=== PATIENT | female | born 1975 | race Caucasian/White ===

== ENCOUNTER 2018-02-20 18:29 | Emergency (ER) | payer BC ==
[~2018-02-20] VITALS: Ht 160 cm; Wt 148.3 kg
[2018-02-20 18:33] VITALS: BP_SYST 153
--- NOTE | 2018-02-20 18:40 | NUR ---
Placed in room 4 . Placed on campus monitor, blood pressure machine and pulse oximeter. To gown for exam. Side rails up.
--- NOTE | 2018-02-20 18:43 | NUR ---
Pt AAOx4 ambulated into ED c/o intermittent SOB x 2 weeks, bloody frothy sputum since yesterday, and chest pain with cough. Pt used inhaler with no relief. Pt skin pink dry and warm, SaO2 94% on RA. No other injuries/complaints per pt/noted. Will continue to monitor.
--- NOTE | 2018-02-20 18:52 | NUR ---
ER Dr. Holden at bedside examining patient.
[2018-02-20] MEDS ORDERED: IPRATROPIUM/ALBUTEROL SULFATE 3 ML AMPUL.NEB INH ONE ×2 (19:15→20:00)
[2018-02-20] MEDS ORDERED: methylPREDNISolone SOD SUCC/PF 62.5 MG/ML VIAL IM ONE (20:00)
[2018-02-20 20:06] LABS: BASOPHILS % (AUTO) 0.8 % (0.0-2.0); EOSINOPHILS # (AUTO) 0.1 K/uL (0.0-0.4); EOSINOPHILS % (AUTO) 1.8 % (0.0-4.0); HEMATOCRIT 34.9 % (36-48); HEMOGLOBIN 11.4 g/dL (12.0-16.0); LYMPHOCYTES # (AUTO) 0.6 K/uL (1.0-5.5); LYMPHOCYTES % (AUTO) 10.8 % (20.5-51.5); MEAN CORPUSCULAR HEMOGLOBIN 27 pg (27-31); MEAN CORPUSCULAR HGB CONC 33 % (32-36); MEAN CORPUSCULAR VOLUME 83 fL (79.0-98.0); MONOCYTES # (AUTO) 0.2 K/uL (0.0-1.0); MONOCYTES % (AUTO) 3.8 % (1.7-9.3); NEUTROPHILS # (AUTO) 4.8 K/uL (1.8-7.7); NEUTROPHILS % (AUTO) 82.8 % (40.0-70.0); PLATELET COUNT (AUTO) 133 K/uL (130-430); RED BLOOD CELL COUNT(AUTO) 4.22 MIL/uL (4.2-6.2); RED CELL DISTRIBUTION WIDTH 16.3 % (9.0-15.0); WHITE BLOOD COUNT (AUTO) 5.7 K/uL (4.8-10.8)
[2018-02-20 20:12] LABS: CALCIUM 8.9 mg/dL (8.4-11.0); CREATININE 0.85 mg/dL (0.55-1.30); POTASSIUM 3.4 mmol/L (3.5-5.1)
--- NOTE | 2018-02-20 20:12 | NUR ---
Medication administered. Pt tolerated well. No adverse reactions noted.
[2018-02-20 20:14] LABS: PROTHROMBIN TIME 10.5 SECS (9.5-12.5)
[2018-02-20 20:16] LABS: ALBUMIN 3.3 g/dL (3.4-4.8); TOTAL BILIRUBIN 0.4 mg/dL (0.0-1.0)
--- NOTE | 2018-02-20 20:25 | NUR ---
Respiratory at bedside
--- NOTE | 2018-02-20 21:53 | NUR ---
Patient given written and verbal discharge instructions and verbalizes understanding. ER MD Motley discussed with patient the results and treatment provided. Patient in stable condition. ID arm band removed. IV catheter removed intact and dressing applied, no active bleeding. Rx of Prednisone; Singulair given. Patient educated on pain management and to follow up with PMD. Pain Scale 0. Opportunity for questions provided and answered. Medication side effect fact sheet provided.
[2018-02-20 21:59] VITALS: BP_SYST 147
== END 2018-02-20 21:53 | disposition home or self-care (01) ==
LOC: SED 18:29
DX: J45.901 Unspecified asthma with (acute) exacerbation (principal); D64.9 Anemia, unspecified; E66.01 Morbid (severe) obesity due to excess calories; R03.0 Elevated blood-pressure reading, without diagnosis of hypertension; Z68.43 Body mass index [BMI] 50.0-59.9, adult
CPT/HCPCS: 36415; 71045; 80053; 82550; 83605; 83735; 83880; 84484; 85025; 85379; 85610; 85730; 87040; 93005; 94640; 96372; 99285; J2930; J7620

== ENCOUNTER 2022-06-28 16:18 | Emergency (ER) | payer BC ==
[~2022-06-28] VITALS: Ht 160 cm; Wt 132.4 kg
[2022-06-28 16:30] VITALS: BP_SYST 145
--- NOTE | 2022-06-28 16:30 | NUR ---
Patient triaged and placed in waiting room. VSS and patient appears in no acute distress at this time. Accompanied by SELF, awaiting available bed, and MD notified of need for MSE.
--- NOTE | 2022-06-28 16:35 | NUR ---
PT CAME IN FROM HOME C/O DROPPED HEAVY METAL CART ON TOP OF RIGHT FOOT, BRUISING AND SWELLING PRESENT. PT IS AMBULATORY BUT HAS PAIN. AAOX4, VSS
--- NOTE | 2022-06-28 17:24 | NUR ---
ER DR. ROMANO EXAMINING PT IN TRIAGE
[2022-06-28] MEDS ORDERED: HYDROcodone/ACETAMIN 10-325 MG TAB PO ONE (17:30)
[2022-06-28] MEDS ORDERED: IBUPROFEN 800 MG TABLET PO ONE (17:30)
--- NOTE | 2022-06-28 18:25 | NUR ---
Patient to ER H1 to gown for evaluation. Side rails up.
--- NOTE | 2022-06-28 19:07 | NUR ---
REPORT GIVEN TO LUIS E RN FOR CONTINUING CARE
[2022-06-28] MEDS ORDERED: IBUP-1969 PO (19:17)
[2022-06-28] MEDS ORDERED: HYDR-3917 PO (19:17)
--- NOTE | 2022-06-28 19:30 | NUR ---
Pt given walking boot for stabilzation. Per MD order to keep it on until pain goes away. Pt understands instructions.
[2022-06-28 19:39] VITALS: BP_SYST 145
--- NOTE | 2022-06-28 19:39 | NUR ---
Patient given written and verbal discharge instructions and verbalizes understanding. ER Dr. Nieves discussed with patient the results and treatment provided. Patient in stable condition. ID arm band removed.. Rx of norco and ibuprofen given. Patient educated on pain management and to follow up with PMD. Pain Scale 0. Opportunity for questions provided and answered. Medication side effect fact sheet provided.
== END 2022-06-28 19:39 | disposition home or self-care (01) ==
LOC: SED 16:18
DX: S90.31XA Contusion of right foot, initial encounter (principal); J45.909 Unspecified asthma, uncomplicated; R03.0 Elevated blood-pressure reading, without diagnosis of hypertension; E11.9 Type 2 diabetes mellitus without complications; Z88.0 Allergy status to penicillin; Z79.899 Other long term (current) drug therapy; W20.8XXA Other cause of strike by thrown, projected or falling object, initial encounter; Y93.89 Activity, other specified; Y92.89 Other specified places as the place of occurrence of the external cause; Y99.8 Other external cause status
CPT/HCPCS: 99283